=== PATIENT | male | born 1965 | race Caucasian/White ===

== ENCOUNTER 2023-04-21 10:29 | Emergency (ER) | payer OTHER ==
[~2023-04-21] VITALS: Ht 170.2 cm; Wt 100.7 kg
[2023-04-21 10:56] VITALS: BP 167/107; PULSE 106; RESP 14; TEMP 97.9; O2SAT 97
== END 2023-04-21 12:47 | disposition home or self-care (01) ==
LOC: MED 10:29
DX: R04.0 Epistaxis (principal)
CPT/HCPCS: 99281